=== PATIENT | male | born 1935 | race African-American/Black ===

== ENCOUNTER 2018-07-23 07:51 | Emergency (ER) | payer MEDICARE ==
[~2018-07-23] VITALS: Ht 170.2 cm; Wt 64.0 kg
[2018-07-23] MEDS ORDERED: IBUPROFEN 600MG TABLET PO ONE (09:00)
[2018-07-23 10:56] VITALS: BP 140/87
== END 2018-07-23 10:59 | disposition home or self-care (01) ==
LOC: ER 08:05
DX: M51.36 Other intervertebral disc degeneration, lumbar region (principal); M25.562 Pain in left knee; M25.561 Pain in right knee; F17.200 Nicotine dependence, unspecified, uncomplicated; V89.2XXA Person injured in unspecified motor-vehicle accident, traffic, initial encounter; Y93.89 Activity, other specified; Y92.89 Other specified places as the place of occurrence of the external cause; Y99.8 Other external cause status
CPT/HCPCS: 72100; 73562; 99284

== ENCOUNTER 2020-07-17 21:28 | Emergency (ER) | payer MEDICARE, MEDICAID ==
[~2020-07-17] VITALS: Ht 175.3 cm; Wt 73.0 kg
[2020-07-18 02:14] VITALS: BP 138/90
== END 2020-07-18 04:15 | disposition home or self-care (01) ==
LOC: ER 21:46
DX: R53.81 Other malaise (principal); R53.83 Other fatigue; Z59.0 Homelessness
CPT/HCPCS: 99283

== ENCOUNTER → 2022-09-10 | Day surgery (SDC) | payer MEDICARE, MEDICAID ==
[~2022-09-10] VITALS: Ht 170.2 cm; Wt 54.4 kg
[~2022-09-10] MED LIST: BALANCED SALT IRRIG SOLN COMB1 500ML OP ONE; CARI250T PO; CYCLOPENTOLATE HCL 1% OPHTH DROPS 2ML RIGHTEYE NR; DIAZ10TA PO; FENTANYL CITRATE/PF 50MCG/ML 2ML VIAL ONE; HYALURONATE SODIUM 10 MG/ML 0.55ML SYRINGE IO ONE; HYDR-4009 PO; LACTATED RINGERS 1,000 ML IV SCH; MIDAZOLAM HCL 2 MG/2 ML VIAL ONE; PHENYLEPHRINE HCL 10% OPHTH DROPS 5ML RIGHTEYE NR; TROPICAMIDE 1% OPHTH DROPS 15ML RIGHTEYE NR; TRYPAN BLUE 0.5 ML DISP.SYRIN IO ONE
== END | disposition home or self-care (01) ==
LOC: OR 08:04
PROVIDERS: ATTEND Ophthalmology
DX: H25.21 Age-related cataract, morgagnian type, right eye (principal); I10 Essential (primary) hypertension; J44.9 Chronic obstructive pulmonary disease, unspecified; M19.90 Unspecified osteoarthritis, unspecified site; Z87.891 Personal history of nicotine dependence; Z79.899 Other long term (current) drug therapy; Z98.890 Other specified postprocedural states; Z20.822 Contact with and (suspected) exposure to COVID-19; Z72.89 Other problems related to lifestyle
CPT/HCPCS: 66982; 87426; C9803; J2250; J3010; J3490; Q9957; V2632

== ENCOUNTER 2023-09-14 10:21 | Emergency (ER) | payer MEDICAID, MEDICARE ==
[~2023-09-14] VITALS: Ht 170.2 cm; Wt 62.0 kg
[~2023-09-14 10:21] MED LIST changes: -BALANCED SALT IRRIG SOLN COMB1 500ML OP ONE; -CYCLOPENTOLATE HCL 1% OPHTH DROPS 2ML RIGHTEYE NR; +DIAZ-570 PO; -DIAZ10TA PO; -FENTANYL CITRATE/PF 50MCG/ML 2ML VIAL ONE; -HYALURONATE SODIUM 10 MG/ML 0.55ML SYRINGE IO ONE; -LACTATED RINGERS 1,000 ML IV SCH; -MIDAZOLAM HCL 2 MG/2 ML VIAL ONE; -PHENYLEPHRINE HCL 10% OPHTH DROPS 5ML RIGHTEYE NR; -TROPICAMIDE 1% OPHTH DROPS 15ML RIGHTEYE NR; -TRYPAN BLUE 0.5 ML DISP.SYRIN IO ONE
[2023-09-14 10:30] VITALS: PULSE 83; O2SAT 99
[2023-09-14 18:00] VITALS: TEMP 98.2
[2023-09-14] MEDS: LIDOCAINE 5% PATCH TOP SCH ×2 (18:00→19:11)
[2023-09-14] MEDS ORDERED: ACETAMINOPHEN 325MG TABLET PO ONE (18:00)
[2023-09-14] MEDS ORDERED: IBUP-2028 MT (18:23)
[2023-09-14] MEDS ORDERED: LIDO700A15 TP (18:23)
[2023-09-14 19:11] VITALS: BP 153/95; RESP 18
== END 2023-09-14 19:18 | disposition home or self-care (01) ==
LOC: ER 10:40
DX: S16.1XXA Strain of muscle, fascia and tendon at neck level, initial encounter (principal); X58.XXXA Exposure to other specified factors, initial encounter; Y93.89 Activity, other specified; Y92.89 Other specified places as the place of occurrence of the external cause; Y99.8 Other external cause status
CPT/HCPCS: 99283

== ENCOUNTER 2024-08-15 13:04 | Emergency (ER) | payer MEDICARE, MEDICAID ==
[~2024-08-15] VITALS: Ht 170.2 cm; Wt 61.0 kg
[~2024-08-15 13:04] MED LIST changes: +IBUP-2028 MT; +LIDO700A15 TP
[2024-08-15 13:12] VITALS: O2SAT 99
[2024-08-15] MEDS ORDERED: HYDR15CR41 TP (14:10)
[2024-08-15 14:40] VITALS: BP 116/50; PULSE 80; RESP 20; TEMP 36.89184; O2SAT 99
== END 2024-08-15 14:41 | disposition home or self-care (01) ==
LOC: ER 13:04
DX: L21.0 Seborrhea capitis (principal)
CPT/HCPCS: 99282

== ENCOUNTER 2025-02-22 00:16 | Emergency (ER) | payer BC, MEDICAID ==
[~2025-02-22] VITALS: Ht 172.7 cm; Wt 68.0 kg
[~2025-02-22 00:16] MED LIST changes: +HYDR15CR41 TP; +LIDO-53 TP; -LIDO700A15 TP
[2025-02-22 00:25] VITALS: BP 116/71; PULSE 76; RESP 20; TEMP 37.6; O2SAT 100
[2025-02-22 01:25] LABS: CHLORIDE 103 mEq/L (98-107); POTASSIUM 4.1 mEq/L (3.5-5.1); SODIUM 137 mEq/L (136-145)
[2025-02-22 01:26] LABS: CALCIUM 10.1 mg/dL (8.7-10.4); CARBON DIOXIDE 27 mEq/L (21-32)
[2025-02-22 01:28] LABS: BASOPHILS % 0.5 % (0.0-2.0); DIFFERENTIAL COMMENT 0; EOSINOPHILS % 1.3 % (0.0-5.0); HEMATOCRIT. 37.9 % (42.0-52.0); LYMPHOCYTES % 18.3 % (20.0-50.0); MEAN CORPUSCULAR HEMOGLOBIN 24.4 pg (28.0-32.0); MEAN CORPUSCULAR HGB CONC 31.6 g/dL (31.0-37.0); MEAN CORPUSCULAR VOLUME 77.1 fL (80.0-94.0); MEAN PLATELET VOLUME 8.7 fl (7.4-10.4); MONOCYTES % 8.4 % (2.0-8.0); NEUTROPHILS % 71.5 % (40.0-76.0); PLATELET 294 x1000/uL (130-400); RED BLOOD CELL COUNT 4.92 mill/uL (4.7-6.1); RED CELL DISTRIBUTION WIDTH 15.8 % (11.6-14.6); WHITE BLOOD COUNT 9.3 x1000/uL (4.5-11.0)
[2025-02-22 01:31] LABS: CREATININE 1.1 mg/dL (0.6-1.3); GLUCOSE 86 mg/dL (70-105); UREA NITROGEN BLOOD 20 mg/dL (9-23)
[2025-02-22 01:33] LABS: ALANINE AMINOTRANSFERASE 11 IU/L (10-49); ALBUMIN 4.7 g/dL (3.2-4.8); ASPARTATE AMINOTRANSFERASE 21 IU/L (<34); BILIRUBIN DIRECT 0.1 mg/dL (<=3.0); BILIRUBIN TOTAL 0.6 mg/dL (0.1-1.0)
[2025-02-22 01:37] LABS: PROTHROMBIN TIME 10.3 sec (9.6-11.0)
[2025-02-22] MEDS ORDERED: POLY17PO3 MT (02:49)
== END 2025-02-22 03:17 | disposition home or self-care (01) ==
LOC: ER 00:49
DX: K59.00 Constipation, unspecified (principal); F12.90 Cannabis use, unspecified, uncomplicated; F41.9 Anxiety disorder, unspecified; Z79.899 Other long term (current) drug therapy
CPT/HCPCS: 36415; 74176; 80048; 80076; 85025; 99284